=== PATIENT | female | born 2000 | race Two or more races ===

== ENCOUNTER 2025-03-19 17:58 | Emergency (ER) | payer OTHER ==
[~2025-03-19] VITALS: Ht 172.7 cm; Wt 79.0 kg
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
[2025-03-19 18:54] VITALS: BP 122/67; PULSE 86; RESP 16; TEMP 98.7; O2SAT 98
== END 2025-03-19 19:05 | disposition home or self-care (01) ==
LOC: ER 17:58
DX: S50.11XA Contusion of right forearm, initial encounter (principal); Z91.040 Latex allergy status; V43.62XA Car passenger injured in collision with other type car in traffic accident, initial encounter; Y93.89 Activity, other specified; Y92.89 Other specified places as the place of occurrence of the external cause; Y99.8 Other external cause status